=== PATIENT | female | born 1950 | race Caucasian/White ===

== ENCOUNTER → 2017-01-18 | Outpatient (CLI) | payer BC ==
--- NOTE | 2017-01-18 13:31 | DIAGNOSTIC IMAGING REPORT ---
THYROID ULTRASOUND HISTORY: Neck mass R22.1 Neck [id number] COMPARISON: November 21, 2007 FINDINGS: Right lobe: Maximum dimension 5.5 cm. Diffusely heterogeneous and multinodular Left lobe: Atrophy Isthmus: No nodules. IMPRESSION: Diffusely heterogeneous the right thyroid lobe with a multinodular configuration. No change from the prior study. Atrophy left thyroid lobe Electronically signed by: Jose Carvalho M.D. 01/18/2017 1:28 PM Dictated Date/Time: 01/18/2017 1:25 PM
== END | disposition home or self-care (01) ==
LOC: C.ULTRBC 12:50
PROVIDERS: ATTEND Physician Assistant
DX: R22.1 Localized swelling, mass and lump, neck (principal); E04.2 Nontoxic multinodular goiter

== ENCOUNTER → 2017-07-12 | Outpatient (CLI) | payer BC ==
--- NOTE | 2017-07-13 08:13 | MAMMOGRAPHY REPORT ---
BILATERAL DIGITAL SCREENING MAMMOGRAM TOMOSYNTHESIS WITH CAD: 07/12/2017 CLINICAL HISTORY: Routine screening. Patient has no complaints. TECHNIQUE: Breast tomosynthesis in addition to standard 2D mammography was performed. Current study was also evaluated with a Computer Aided Detection (CAD) system. COMPARISON: Comparison is made to exams dated: 07/06/2016 mammogram, 07/03/2015 mammogram, 07/01/2014 m ammogram, 06/29/2013 mammogram - [facility], 05/09/2007, and 05/09/2007. BREAST COMPOSITION: The tissue of both breasts is almost entirely fatty. FINDINGS: There are stable intramammary lymph nodes in the lateral left breast. A few benign rim aris cifications in the breasts. No suspicious mass, architectural distortion or cluster of suspicious mi crocalcifications is seen. IMPRESSION: ACR BI-RADS CATEGORY 1: NEGATIVE There is no mammographic evidence of malignancy. A 1 year screening mammogram is recommended. The pa tient will receive written notification of the results. Approximately 10% of breast cancers are not detected with mammography. A negative mammographic report should not delay biopsy if a clinically suggestive mass is present. Inez Fabian M.D. ay/:07/12/2017 18:04:12 Perinatal Tech: Autumn CHAVEZ(Ekta)(Floresita)(ZAK), [facility] letter sent: Normal 1/2 BI-RADS Code: ACR BI-RADS Category 1: Negative
== END | disposition home or self-care (01) ==
LOC: C.MAMM 14:20
PROVIDERS: ATTEND Family Medicine
DX: Z12.31 Encounter for screening mammogram for malignant neoplasm of breast (principal)

== ENCOUNTER → 2018-02-17 | Outpatient (CLI) | payer BC | END | disposition home or self-care (01) | LOC: C.PAPS 17:44 | PROVIDERS: ATTEND Obstetrics & Gynecology | DX: N95.0 Postmenopausal bleeding (principal) ==

== ENCOUNTER → 2018-02-23 | Outpatient (CLI) | payer BC | END | disposition home or self-care (01) | LOC: C.PATHSPEC 18:35 | PROVIDERS: ATTEND Dermatology | DX: B07.9 Viral wart, unspecified (principal) ==